=== PATIENT | male | born 1950 | race African-American/Black ===

== ENCOUNTER 2019-01-19 09:21 | Emergency (ER) | payer OTHER ==
[~2019-01-19] VITALS: Ht 190.5 cm; Wt 104.3 kg
[2019-01-19 09:33] LABS: URINE BILIRUBIN NEGATIVE (Negative); URINE BLOOD NEGATIVE (Negative); URINE CLARITY CLEAR; URINE COLOR YELLOW; URINE GLUCOSE-RANDOM* NEGATIVE (Negative); URINE KETONES NEGATIVE (Negative); URINE LEUKOCYTES-REFLEX 1+ (Negative); URINE NITRITE-REFLEX NEGATIVE (Negative); URINE PROTEIN (DIPSTICK) NEGATIVE (Negative); URINE SPECIFIC GRAVITY <= 1.005 (1.005-1.035); URINE UROBILINOGEN 0.2 E.U./dl (0.2-1.0)
[2019-01-19 09:49] LABS: ABSOLUTE NEUTROPHILS 5.5 thou/uL (1.4-8.2); HEMATOCRIT 39.3 % (42.0-52.0); HEMOGLOBIN 12.9 gm/dL (14.0-18.0); LYMPHOCYTES 19.2 % (24.0-44.0); MCH 27.2 pg (26.0-34.0); MCHC 32.9 g/dL (28.0-37.0); MCV 82.4 fL (80.0-100.0); MONOCYTES 5.7 % (1.0-8.0); PLATELET COUNT 302 thou/uL (150-400); POLYS 73.1 % (36.0-66.0); RBC 4.77 mil/uL (4.50-6.00); WBC 7.5 thou/uL (4.0-11.0)
[2019-01-19 09:53] LABS: CALCIUM 10.3 mg/dL (8.5-10.1); CREATININE 1.3 mg/dL (0.7-1.3); POTASSIUM 3.9 mmol/L (3.5-5.1)
[2019-01-19 09:54] LABS: BACTERIA-REFLEX 1-9 Few /HPF (None Seen); CASTS None Seen /LPF (None Seen); CRYSTALS None Seen /LPF (None Seen); SQUAMOUS 0-3 Few /LPF (0-3); URINE RBC 0-2 Rare /HPF (0-2); URINE WBC-REFLEX 0-5 Rare /HPF (0-5)
[2019-01-19 10:00] LABS: ALBUMIN 3.8 g/dL (3.4-5.0); TOTAL BILIRUBIN 0.2 mg/dL (<0.1-1.0); TOTAL PROTEIN 8.8 g/dL (6.4-8.2)
[2019-01-19] MEDS ORDERED: LEVAQUIN 500 M500 M3 PO (12:12)
[2019-01-19 12:25] VITALS: BP 124/69
== END 2019-01-19 12:27 | disposition home or self-care (01) ==
LOC: ER 09:21
PROVIDERS: Emergency Medicine
DX: N45.1 Epididymitis (principal); N43.3 Hydrocele, unspecified; I10 Essential (primary) hypertension; F17.210 Nicotine dependence, cigarettes, uncomplicated

== ENCOUNTER → 2019-03-23 | Outpatient (CLI) | payer OTHER ==
[~2019-03-23] MED LIST: LEVAQUIN 500 M500 M3 PO
== END ==
LOC: ULTRA 12:09
DX: N45.3 Epididymo-orchitis (principal)

== ENCOUNTER 2019-07-13 18:00 | Emergency (ER) | payer OTHER ==
[~2019-07-13] VITALS: Ht 188 cm; Wt 112.0 kg
[2019-07-13] MEDS ORDERED: TOPROL XL100 MG PO (18:10)
[2019-07-13] MEDS ORDERED: HYDROCHLOROTHIA25 M2 PO (18:10)
[2019-07-13] MEDS ORDERED: AMLODIPINE-VAL1 EAC3 PO (18:10)
[2019-07-13 18:39] LABS: HEMOGLOBIN 11.6 gm/dL (14.0-18.0)
[2019-07-13 18:41] LABS: HEMATOCRIT 35.2 % (42.0-52.0); MCH 26.9 pg (26.0-34.0); MCHC 32.9 g/dL (28.0-37.0); MCV 81.6 fL (80.0-100.0); RBC 4.31 mil/uL (4.50-6.00); RDW 15.9 % (10.5-14.5); WBC 9.4 thou/uL (4.0-11.0)
[2019-07-13 18:46] LABS: CALCIUM 10.1 mg/dL (8.5-10.1)
[2019-07-13 18:49] LABS: POTASSIUM 3.4 mmol/L (3.5-5.1)
[2019-07-13] MEDS ORDERED: XARELTO15 MG PO (20:06)
[2019-07-13 20:28] VITALS: BP 143/77
== END 2019-07-13 20:29 | disposition home or self-care (01) ==
LOC: ER 18:00
PROVIDERS: Emergency Medicine Emergency Medical Services
DX: I82.403 Acute embolism and thrombosis of unspecified deep veins of lower extremity, bilateral (principal); F17.210 Nicotine dependence, cigarettes, uncomplicated

== ENCOUNTER 2020-05-28 13:37 | Emergency (ER) | payer OTHER ==
[~2020-05-28 13:37] MED LIST changes: +AMLODIPINE-VAL1 EAC3 PO; +HYDROCHLOROTHIA25 M2 PO; +TOPROL XL100 MG PO; +XARELTO15 MG PO
[2020-05-28 14:29] LABS: ABSOLUTE NEUTROPHILS 4.5 thou/uL (1.4-8.2); BASOPHILS 0.9 % (0.0-2.0); EOSINOPHILS 0.9 % (0.0-3.0); HEMATOCRIT 35.4 % (42.0-52.0); HEMOGLOBIN 11.4 gm/dL (14.0-18.0); LYMPHOCYTES 18.7 % (24.0-44.0); MCHC 32.3 g/dL (28.0-37.0); MCV 80.3 fL (80.0-100.0); MONOCYTES 7.4 % (1.0-8.0); PLATELET COUNT 198 thou/uL (150-400); POLYS 72.1 % (36.0-66.0); RBC 4.41 mil/uL (4.50-6.00); RDW 16.2 % (10.5-14.5); WBC 6.2 thou/uL (4.0-11.0)
[2020-05-28 14:31] LABS: ANION GAP 16 mmol/L (7-16); BUN 14 mg/dL (7-18); CALCIUM 9.6 mg/dL (8.5-10.1); CHLORIDE 105 mmol/L (98-107); CO2 22 mmol/L (21-32); CREATININE 1.1 mg/dL (0.7-1.3); GLUCOSE 94 mg/dL (74-106); POTASSIUM 3.1 mmol/L (3.5-5.1); SODIUM 143 mmol/L (136-145)
[2020-05-28 14:40] LABS: TROPONIN-I <0.06 ng/mL (<0.06)
[2020-05-28] MEDS ORDERED: KEFLEX500 M1 PO (16:45)
[2020-05-28 16:56] VITALS: BP 185/84
--- NOTE | 2020-05-30 07:20 | EKG ---
[facility] [address] [place] [address] ELECTROCARDIOGRAM REPORT Name: TANIA VASQUEZ Room #: CLIFF Collins#: [id number] Admission: 05/28/20 Attend Phys: Discharge: 05/28/20 Date of : 54 Report #: [id number] <ELECTRONICALLY SIGNED> By: Junior Cisneros MD, FACC 05/30/20 07 1347 46 Junior Cisneros MD, FACC /EPI
== END 2020-05-28 17:01 | disposition home or self-care (01) ==
LOC: ER 13:37
PROVIDERS: Nurse Practitioner
DX: R07.89 Other chest pain (principal); L03.114 Cellulitis of left upper limb; M79.10 Myalgia, unspecified site; F17.210 Nicotine dependence, cigarettes, uncomplicated; Z79.899 Other long term (current) drug therapy

== ENCOUNTER 2020-07-07 11:38 | Emergency (ER) | payer OTHER ==
[~2020-07-07] VITALS: Ht 188 cm; Wt 113.4 kg
[~2020-07-07 11:38] MED LIST changes: +KEFLEX500 M1 PO
[2020-07-07] MEDS ORDERED: PREDNISONE 10 M10 M1 PO (12:47)
[2020-07-07 14:16] VITALS: BP 128/78
== END 2020-07-07 14:24 | disposition home or self-care (01) ==
LOC: ER 11:38
DX: M25.362 Other instability, left knee (principal); R20.0 Anesthesia of skin; R20.2 Paresthesia of skin; I10 Essential (primary) hypertension; F17.210 Nicotine dependence, cigarettes, uncomplicated; Z79.899 Other long term (current) drug therapy